=== PATIENT | male | born 1960 | race Caucasian/White ===

== ENCOUNTER 2020-02-20 00:11 | Observation (INO) | payer BC, OTHER ==
--- NOTE | 2020-02-20 00:16 | EDM.PDOC ---
ED HPI GENERAL MEDICAL PROBLEM - General Time Seen by Provider: 02/20/20 00:12 Source of Information: Reports: Patient, EMS, Family History Limitations: Reports: Altered Mental Status - History of Present Illness INITIAL COMMENTS - FREE TEXT/NARRATIVE: 59-year-old male who presents to the emergency department via ambulance from home after he could not be awakened by his was noted to be foaming at the mouth. Apparently, the patient had reported to his at 5 PM that he was tired and he went to bed at that time and at approximately 8 PM she went in to wake the patient up to give him his medication and she found him to be foaming at the mouth and was unresponsive and she could not get him to arouse with any stimuli and she called 911. According to her, he had really had no complaints prior to this. 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 He had no cough or nasal congestion. He has had no vomiting. He hasn't really been eating well today according her. The patient gives me some history but he tells me that he had recently been on a long trip and he had not slept for the past 48 hours. The does not corroborate that and reports that he has been sleeping normally except going to bed early tonight as far she knows. The patient denies any pain at present and would rate his pain as a 0/10. He is awake and able to converse but he goes to sleep easily. He does seem somewhat confused but is able to answer most of my questions appropriately but is not clear on some of his past history and recent events. Onset: Today (Found by at 8 PM to be unresponsive) Duration: Improving Location: Reports: Other (Not applicable) Quality: Reports: Other (Not applicable) Improves with: Reports: None Worsens with: Reports: None Context: Reports: Other (As above) Associated Symptoms: Reports: Confusion, Other (Low O2 saturations) Treatments INFORMATION TECHNOLOGY INTERN: Reports: Other (see below) (Nothing) - Related Data Allergies Allergy/AdvReac Type Severity Reaction Status Date / Time No Known Allergies Allergy Verified 02/20/20 00:27 Home Meds: Home Meds Apixaban [Eliquis] 5 mg PO BID 02/20/20 [History] Escitalopram [Lexapro] 20 mg PO BEDTIME 02/20/20 [History] Metoprolol Succinate [Toprol XL] 25 mg PO BID 02/20/20 [History] levETIRAcetam [Keppra] 1,000 mg PO BID 02/20/20 [History] Past Medical History Cardiovascular History: Reports: Afib (On Eliquis), Hypertension, Stents (Has a stent in his left lower leg), Other (See Below) (Peripheral vascular disease) Neurological History: Reports: Seizure (On Keppra) Psychiatric History: Reports: Anxiety, Depression Hematologic History: Reports: Anticoagulation Therapy (On Eliquis) - Past Surgical History Cardiovascular Surgical History: Reports: Vascular Surgery (Stent placed in left lower extremity secondary to arterial blockage.) Social & Family History - Tobacco Use Smoking Status *Q: Current Every Day Smoker - Alcohol Use Alcohol Use History: Yes Alcohol Use in Last Twelve Months: No Alcohol Use Comment: 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 - Living Situation & Occupation Living situation: Reports: Occupation: Employed (He works at the [employer].) ED ROS GENERAL - Review of Systems Review Of Systems: See Below (It should be noted that this is unreliable secondary to the patient's confusion and disorientation but represents what he told me and what his conveyed to me as well.) Constitutional: Reports: Fatigue HEENT: Reports: No Symptoms Respiratory: Reports: Other (Patient denies any symptoms but he has low O2 saturations and was reported by his to be "aspirating" tonight when she found him) Cardiovascular: Reports: No Symptoms Endocrine: Reports: No Symptoms GI/Abdominal: Reports: No Symptoms : Reports: No Symptoms Musculoskeletal: Reports: No Symptoms Skin: Reports: No Symptoms Neurological: Reports: Seizure (Possible seizure), Other (Confused/disoriented. Increased sleepiness and decreased alertness) Psychiatric: Reports: Confusion Hematologic/Lymphatic: Reports: Easy Bruising (On Eliquis) Immunologic: Reports: No Symptoms - Physical Exam Exam: See Below Exam Limited By: No Limitations General Appearance: WD/WN, Lethargic (Will arouse and speaks in full sentences.) , Moderate Distress Eye Exam: Bilateral Eye: EOMI, Normal Inspection, Other (Sclera are anicteric) Ears: Normal External Exam, Hearing Grossly Normal Nose: Normal Inspection, Normal Mucosa, No Blood Throat/Mouth: Normal Oropharynx, Normal Voice, No Airway Compromise. No: Evidence of Tongue Biting Head Exam: Atraumatic, Normocephalic Neck: Normal Inspection, Supple, Non-Tender, Full Range of Motion Respiratory/Chest: No Respiratory Distress, Lungs Clear, Normal Breath Sounds, No Accessory Muscle Use, Chest Non-Tender Cardiovascular: Normal Peripheral Pulses, No Gallop, No Murmur, Tachycardia, Irregularly Irregular GI/Abdominal: Normal Bowel Sounds, Soft, Non-Tender, No Mass Neuro Exam (Abbreviated): CN II-XII Intact, No Motor/Sensory Deficits, Inattentive, Disoriented (Slight), Slow to Respond, Other (Tends to fall asleep easily.) Back Exam: Normal Inspection, Full Range of Motion Extremities: Normal Inspection, Normal Range of Motion, Non-Tender, No Pedal Edema, Normal Capillary Refill Skin Exam: Warm, Dry, Intact, Normal Color, No Rash EKG INTERPRETATION EKG Date: 02/20/20 Time: 00:28 Rhythm: A-Fib Rate (Beats/Min): 103 Dexter: Normal P-Wave: Absent QRS: Normal ST-T: Normal QT: Normal Comparison: NA - No Prior EKG (But reports that he does have a history of atrial fibrillation.) EKG Interpretation Comments: Poor R-wave progression but no acute injury pattern. Course - Vital Signs Last Recorded V/S: Last Vital Signs Temp 36.4 C 02/20/20 00:11 Pulse 105 H 02/20/20 00:11 Resp 15 02/20/20 00:11 BP 148/96 H 02/20/20 00:11 Pulse Ox 90 L 02/20/20 00:11 - Orders/Labs/Meds Orders: Active Orders 24 hr Category Date Time Status Admission Status [Patient Status] [ADT] Routine ADT 02/20/20 02:57 Active Cardiac Monitoring [RC] .As Directed Care 02/20/20 02:57 Active EKG Documentation Completion [RC] ASDIRECTED Care 02/20/20 00:18 Active Chest 1V Frontal [CR] Stat Exams 02/20/20 00:17 Taken Head wo Cont [CT] Stat Exams 02/20/20 01:28 Taken DRUG SCREEN, URINE ALERE [URCHEM] Stat Lab 02/20/20 02:37 Ordered UA W/MICROSCOPIC [URIN] Stat Lab 02/20/20 02:38 Ordered Sodium Chloride 0.9% [Normal Saline] 1,000 ml Med 02/20/20 01:30 Active IV ASDIRECTED Sodium Chloride 0.9% [Saline Flush] Med 02/20/20 00:19 Active 10 ml FLUSH ASDIRECTED PRN Vancomycin 1.25 gm Med 02/20/20 02:14 Active Sodium Chloride 0.9% [Normal Saline] 250 ml IV ONETIME Peripheral IV Insertion Adult [OM.PC] Routine Oth 02/20/20 00:19 Ordered EKG 12 Lead [EK] Routine Ther 02/20/20 00:17 Ordered Medication Orders Sodium Chloride (Normal Saline) 1,000 mls @ 100 mls/hr IV ASDIRECTED FLO Last Admin: 02/20/20 02:20 Dose: 100 mls/hr Vancomycin HCl 1.25 gm/ Sodium (Chloride) 250 mls @ 167 mls/hr IV ONETIME ONE Stop: 02/20/20 03:43 Sodium Chloride (Saline Flush) 10 ml FLUSH ASDIRECTED PRN PRN Reason: Keep Vein Open Last Admin: 02/20/20 02:01 Dose: 10 ml Labs: Laboratory Tests 02/19/20 02/20/20 02/20/20 Range/Units 23:48 00:33 00:33 WBC 13.4 H (4.5-12.0) X10-3/uL RBC 5.35 (4.30-5.75) x10(6)uL Hgb 16.5 (13.5-17.8) g/dL Hct 49.2 (30.0-51.3) % MCV 91.9 (80-96) fL MCH 30.9 (27.7-33.6) pg MCHC 33.6 (32.2-35.4) g/dL RDW 13.6 (11.5-15.5) % Plt Count 224 (125-369) X10(3)uL MPV 9.6 (7.4-10.4) fL Neut % (Auto) 78.6 (46-82) % Lymph % (Auto) 12.9 L (13-37) % Carlisle % (Auto) 6.1 (4-12) % Eos % (Auto) 1 (1.0-5.0) % Baso % (Auto) 2 (0-2) % Neut # (Auto) 10.6 H (1.6-8.3) # Lymph # (Auto) 1.7 (0.6-5.0) # Carlisle # (Auto) 0.8 (0.0-1.3) # Eos # (Auto) 0.1 (0.0-0.8) # Baso # (Auto) 0.2 (0.0-0.2) # PT (9.0-11.1) sec INR (1.00-1.24) APTT (24.4-33.2) SECONDS POC VBG pH 7.45 H (7.31-7.41) POC VBG pCO2 34.4 L (41-51) mmHG POC VBG HCO3 23.7 (23-28) mmol/L POC VBG Total CO2 25 (24-29) mmol/L POC VBG Base Excess 0 (-2-3) mmol/L Sodium 142 (135-145) mmol/L Potassium 4.7 (3.5-5.3) mmol/L Chloride 103 (100-110) mmol/L Carbon Dioxide 28 (21-32) mmol/L BUN 11 (7-18) mg/dL Creatinine 1.1 (0.70-1.30) mg/dL Est Cr Clr Drug Dosing TNP Estimated GFR (MDRD) > 60 (>60) BUN/Creatinine Ratio 10.0 (9-20) Glucose 137 H (80-116) mg/dL Calcium 8.1 L (8.6-10.2) mg/dL Magnesium 1.8 (1.8-2.5) mg/dL Total Bilirubin 0.8 (0.1-1.3) mg/dL AST 23 (5-25) IU/L ALT 19 (12-36) U/L Alkaline Phosphatase 90 (56-112) IU/L Troponin I (4.0-60.3) pg/mL Total Protein 7.7 (6.0-8.0) g/dL Albumin 3.6 (3.2-4.6) g/dL Globulin 4.1 g/dL Albumin/Globulin Ratio 0.9 Salicylates (<2.8) mg/dL Acetaminophen (<2) ug/mL Ethyl Alcohol (<0.03) % 02/20/20 02/20/20 02/20/20 Range/Units 00:33 00:33 00:33 WBC (4.5-12.0) X10-3/uL RBC (4.30-5.75) x10(6)uL Hgb (13.5-17.8) g/dL Hct (30.0-51.3) % MCV (80-96) fL MCH (27.7-33.6) pg MCHC (32.2-35.4) g/dL RDW (11.5-15.5) % Plt Count (125-369) X10(3)uL MPV (7.4-10.4) fL Neut % (Auto) (46-82) % Lymph % (Auto) (13-37) % Carlisle % (Auto) (4-12) % Eos % (Auto) (1.0-5.0) % Baso % (Auto) (0-2) % Neut # (Auto) (1.6-8.3) # Lymph # (Auto) (0.6-5.0) # Carlisle # (Auto) (0.0-1.3) # Eos # (Auto) (0.0-0.8) # Baso # (Auto) (0.0-0.2) # PT 11.6 H (9.0-11.1) sec INR 1.08 (1.00-1.24) APTT 31.0 (24.4-33.2) SECONDS POC VBG pH (7.31-7.41) POC VBG pCO2 (41-51) mmHG POC VBG HCO3 (23-28) mmol/L POC VBG Total CO2 (24-29) mmol/L POC VBG Base Excess (-2-3) mmol/L Sodium (135-145) mmol/L Potassium (3.5-5.3) mmol/L Chloride (100-110) mmol/L Carbon Dioxide (21-32) mmol/L BUN (7-18) mg/dL Creatinine (0.70-1.30) mg/dL Est Cr Clr Drug Dosing Estimated GFR (MDRD) (>60) BUN/Creatinine Ratio (9-20) Glucose (80-116) mg/dL Calcium (8.6-10.2) mg/dL Magnesium (1.8-2.5) mg/dL Total Bilirubin (0.1-1.3) mg/dL AST (5-25) IU/L ALT (12-36) U/L Alkaline Phosphatase (56-112) IU/L Troponin I 10.5 (4.0-60.3) pg/mL Total Protein (6.0-8.0) g/dL Albumin (3.2-4.6) g/dL Globulin g/dL Albumin/Globulin Ratio Salicylates (<2.8) mg/dL Acetaminophen (<2) ug/mL Ethyl Alcohol (<0.03) % 02/20/20 02/20/20 Range/Units 00:33 00:33 WBC (4.5-12.0) X10-3/uL RBC (4.30-5.75) x10(6)uL Hgb (13.5-17.8) g/dL Hct (30.0-51.3) % MCV (80-96) fL MCH (27.7-33.6) pg MCHC (32.2-35.4) g/dL RDW (11.5-15.5) % Plt Count (125-369) X10(3)uL MPV (7.4-10.4) fL Neut % (Auto) (46-82) % Lymph % (Auto) (13-37) % Carlisle % (Auto) (4-12) % Eos % (Auto) (1.0-5.0) % Baso % (Auto) (0-2) % Neut # (Auto) (1.6-8.3) # Lymph # (Auto) (0.6-5.0) # Carlisle # (Auto) (0.0-1.3) # Eos # (Auto) (0.0-0.8) # Baso # (Auto) (0.0-0.2) # PT (9.0-11.1) sec INR (1.00-1.24) APTT (24.4-33.2) SECONDS POC VBG pH (7.31-7.41) POC VBG pCO2 (41-51) mmHG POC VBG HCO3 (23-28) mmol/L POC VBG Total CO2 (24-29) mmol/L POC VBG Base Excess (-2-3) mmol/L Sodium (135-145) mmol/L Potassium (3.5-5.3) mmol/L Chloride (100-110) mmol/L Carbon Dioxide (21-32) mmol/L BUN (7-18) mg/dL Creatinine (0.70-1.30) mg/dL Est Cr Clr Drug Dosing Estimated GFR (MDRD) (>60) BUN/Creatinine Ratio (9-20) Glucose (80-116) mg/dL Calcium (8.6-10.2) mg/dL Magnesium (1.8-2.5) mg/dL Total Bilirubin (0.1-1.3) mg/dL AST (5-25) IU/L ALT (12-36) U/L Alkaline Phosphatase (56-112) IU/L Troponin I (4.0-60.3) pg/mL Total Protein (6.0-8.0) g/dL Albumin (3.2-4.6) g/dL Globulin g/dL Albumin/Globulin Ratio Salicylates 6.0 (<2.8) mg/dL Acetaminophen < 2 L (<2) ug/mL Ethyl Alcohol < 0.03 (<0.03) % Meds: Medications Generic Name Dose Route Start Last Admin Trade Name Freq PRN Reason Stop Dose Admin Sodium Chloride 1,000 mls @ 100 mls/hr 02/20/20 01:30 02/20/20 02:20 Normal Saline IV 100 mls/hr ASDIRECTED FLO Administration Vancomycin HCl 1.25 gm/ Sodium 250 mls @ 167 mls/hr 02/20/20 02:14 Chloride IV 02/20/20 03:43 ONETIME ONE Sodium Chloride 10 ml 02/20/20 00:19 02/20/20 02:01 Saline Flush FLUSH 10 ml ASDIRECTED PRN Administration Keep Vein Open Discontinued Medications Generic Name Dose Route Start Last Admin Trade Name Freq PRN Reason Stop Dose Admin Levetiracetam 500 mg/ Sodium 105 mls @ 400 mls/hr 02/20/20 01:28 02/20/20 01: 45 Chloride IV 02/20/20 01:42 400 mls/hr ONETIME ONE Administration Sodium Chloride 500 mls @ 999 mls/hr 02/20/20 01:29 02/20/20 01:39 Normal Saline IV 02/20/20 01:59 999 mls/hr .BOLUS ONE Administration Piperacillin Sod/Tazobactam 50 mls @ 100 mls/hr 02/20/20 02:13 02/20/20 02:37 Sod 3.375 gm/ Sodium Chloride IV 02/20/20 02:42 100 mls/hr ONETIME ONE Administration - Radiology Interpretation Free Text/Narrative:: Portable chest x-ray shows haziness in both lower lung august. Concerning for possible aspiration pneumonitis. - Re-Assessments/Exams Free Text/Narrative Re-Assessment/Exam: 02/20/20 01:30: The patient's O2 saturations are 94% on 2 L now and they dropped into the upper 80s when he is off oxygen and still seemed to drop a little bit when he goes to sleep even on oxygen. Her main is quite somnolent but is able to be awakened and does converse in complete. His exam remains nonfocal. His chest x-ray is thought concerning for potential aspiration and his history supports this. His blood tests are all reassuringly normal except for an elevated white blood cell count. I am sending him for a CT of his head at this point and I will give him normal saline 500 mL as a bolus as well as well as Keppra 500 mg IV. 02/20/20 02:30: Patient remains somnolent but will awaken and is appropriate when awakened. He has remained neurologically stable with no focality to his exam. He has remained hypoxic and requiring oxygen and this does seem to worsen when he goes to sleep suggesting he has some sleep apnea he will need admission for continued close monitoring and for supplemental oxygen and for IV antibiotic therapy. I discussed this with the patient's and she is in agreement with this and would be in agreement with the patient being admitted here at this point. The patient will be treated with Zosyn and vancomycin IV. I am awaiting urine tox screen as well as alcohol level and acetaminophen and salicylate levels. The patient adamantly denied using any drugs or drinking alcohol and he denies any thoughts of self-harm and the corroborates this. According to her, he had a pretty normal day up until 5 PM when he went to bed and was feeling more tired than normal. In fact, she reports that he was eating and drinking normally earlier and he was conversing and in good spirits. I will place admission orders and Dr. Melinda deutsch patient at 7 AM on 02/20/2020. Departure - Departure Time of Disposition: 03:00 Disposition: Refer to Observation Condition: Fair (Stable) Clinical Impression: Seizure, Aspiration pneumonitis, Hypoxia Altered mental status Qualifiers: Altered mental status type: unspecified Qualified Code(s): R41.82 - Altered mental status, unspecified - Discharge Information Sepsis Event Note - Focused Exam Vital Signs: Vital Signs Temp Pulse Resp BP Pulse Ox 02/20/20 00:11 36.4 C 105 H 15 148/96 H 90 L Date Exam was Performed: 02/20/20 Time Exam was Performed: 03:13 - My Orders Last 24 Hours: My Active Orders 02/20/20 00:17 Chest 1V Frontal [CR] Stat EKG 12 Lead [EK] Routine 02/20/20 00:18 EKG Documentation Completion [RC] ASDIRECTED 02/20/20 00:19 Sodium Chloride 0.9% [Saline Flush] 10 ml FLUSH ASDIRECTED PRN Peripheral IV Insertion Adult [OM.PC] Routine 02/20/20 01:28 Head wo Cont [CT] Stat 02/20/20 01:30 Sodium Chloride 0.9% [Normal Saline] 1,000 ml IV ASDIRECTED 02/20/20 02:14 Vancomycin 1.25 gm Sodium Chloride 0.9% [Normal Saline] 250 ml IV ONETIME 02/20/20 02:37 DRUG SCREEN, URINE ALERE [URCHEM] Stat 02/20/20 02:38 UA W/MICROSCOPIC [URIN] Stat 02/20/20 02:57 Admission Status [Patient Status] [ADT] Routine Cardiac Monitoring [RC] .As Directed - Assessment/Plan Last 24 Hours: My Active Orders 02/20/20 00:17 Chest 1V Frontal [CR] Stat EKG 12 Lead [EK] Routine 02/20/20 00:18 EKG Documentation Completion [RC] ASDIRECTED 02/20/20 00:19 Sodium Chloride 0.9% [Saline Flush] 10 ml FLUSH ASDIRECTED PRN Peripheral IV Insertion Adult [OM.PC] Routine 02/20/20 01:28 Head wo Cont [CT] Stat 02/20/20 01:30 Sodium Chloride 0.9% [Normal Saline] 1,000 ml IV ASDIRECTED 02/20/20 02:14 Vancomycin 1.25 gm Sodium Chloride 0.9% [Normal Saline] 250 ml IV ONETIME 02/20/20 02:37 DRUG SCREEN, URINE ALERE [URCHEM] Stat 02/20/20 02:38 UA W/MICROSCOPIC [URIN] Stat 02/20/20 02:57 Admission Status [Patient Status] [ADT] Routine Cardiac Monitoring [RC] .As Directed
[2020-02-20] MEDS ORDERED: Sodium Chloride 0.9% 10 ML Syringe FLUSH PRN (00:19)
[2020-02-20] MEDS ORDERED: levETIRAcetam 500 MG in Sodium Chloride 0.9% 100 ML IV ONE (01:28)
[2020-02-20] MEDS ORDERED: Sodium Chloride 0.9% 500 ML IV ONE (01:29)
[2020-02-20] MEDS ORDERED: Piperacillin/Tazobactam 3.375 GM in Sodium Chloride 0.9% 50 ML IV ONE (02:13)
[2020-02-20] MEDS: Sodium Chloride 0.9% 1,000 ML IV SCH ×2 (02:20→08:52)
[2020-02-20 03:03] LABS: ACETAMINOPHEN < 2 ug/mL (<2)
--- NOTE | 2020-02-20 09:32 | PCM.HP.2 ---
H&P History of Present Illness - General Date of Service: 02/20/20 Admit Problem/Dx: Admission Diagnosis/Problem Admission Diagnosis/Problem Altered mental status Source of Information: Patient History Limitations: Reports: No Limitations - History of Present Illness Initial Comments - Free Text/Narative: Darrell is a 59-year-old male was brought in because of altered mental status. His reports that he complained that he was tired, and went to bed about 5 PM. At 8 PM she found him asleep and could not wake him up. Also he was acting confused of the left his vehicle running for 2 hours outside. She reports seeing foaming at the mouth, but no seizure was witnessed. Darrell states that he 's been tired recently sleeping 2-3 hours a night for the last week and also stressed about work. He has a history of paroxysmal atrial fibrillation on anticoagulation, hypertension, peripheral vascular disease and tobacco abuse. Is a previous alcoholic and quit more than 18 years ago. He denies any chest pain or shortness of breath fever chills. Overnight he was noted to be mostly sleepy and sometimes confused and disoriented. - Related Data Allergies/Adverse Reactions: Allergies Allergy/AdvReac Type Severity Reaction Status Date / Time No Known Allergies Allergy Verified 02/20/20 00:27 Home Medications: Home Meds Apixaban [Eliquis] 5 mg PO BID 02/20/20 [History] Escitalopram [Lexapro] 20 mg PO BEDTIME 02/20/20 [History] Metoprolol Succinate [Toprol XL] 25 mg PO BID 02/20/20 [History] levETIRAcetam [Keppra] 1,000 mg PO BID 02/20/20 [History] Past Medical History Cardiovascular History: Reports: Afib, Hypertension, Stents, Other (See Below) Neurological History: Reports: Seizure Psychiatric History: Reports: Anxiety, Depression Hematologic History: Reports: Anticoagulation Therapy - Past Surgical History Cardiovascular Surgical History: Reports: Vascular Surgery Social & Family History - Family History Family Medical History: Unobtainable - Tobacco Use Smoking Status *Q: Current Every Day Smoker Years of Tobacco use: 40 Packs/Tins Daily: 2 - Caffeine Use Caffeine Use: Reports: Coffee, Soda - Recreational Drug Use Recreational Drug Use: No - Living Situation & Occupation Living situation: Reports: Occupation: Employed (He works at the [employer].) H&P Review of Systems - Review of Systems: Review Of Systems: Comprehensive ROS is negative, except as noted in HPI. Exam - Exam Exam: See Below - Vital Signs Vital Signs: Last Vital Signs Temp 97.7 F 02/20/20 07:43 Pulse 88 02/20/20 07:43 Resp 16 02/20/20 07:43 BP 127/62 02/20/20 07:43 Pulse Ox 96 02/20/20 07:43 Weight: 105.035 kg - Exam Quality Assessment: Supplemental Oxygen General: Cooperative HEENT: PERRLA, Hearing Intact, Mucosa Moist & Jarrell, Nares Patent, Normal Nasal Septum, Posterior Pharynx Clear, Conjunctiva Clear, EOMI, EACs Clear, TMs Clear Neck: Supple, Trachea Midline, 2 Lungs: Clear to Auscultation, Normal Respiratory Effort Cardiovascular: Regular Rate, Regular Rhythm GI/Abdominal Exam: Normal Bowel Sounds, Soft, Non-Tender, No Organomegaly, No Distention, No Abnormal Bruit, No Mass, Pelvis Stable (Male) Exam: No Hernia, Normal Inspection, Normal Prostate, Circumcised Rectal (Males) Exam: Normal Exam, Normal Rectal Tone, Prostate Normal Back Exam: Normal Inspection, Full Range of Motion, NT Extremities: Normal Inspection, Normal Range of Motion, Non-Tender, No Pedal Edema, Normal Capillary Refill Skin: Warm, Dry, Intact Neurological: Cranial Nerves Intact, Reflexes Equal Bilateral Neuro Extensive - Mental Status: Disorientation to Time, Inattentive. No: Oriented x3 Neuro Extensive - Motor, Sensory, Reflexes: CN II-XII Intact, Normal Gait, Normal Reflexes Psychiatric: Alert - Patient Data Lab Results Last 24 hrs: Laboratory Results - last 24 hr 02/19/20 02/20/20 02/20/20 Range/Units 23:48 00:33 00:33 WBC 13.4 H (4.5-12.0) X10-3/uL RBC 5.35 (4.30-5.75) x10(6)uL Hgb 16.5 (13.5-17.8) g/dL Hct 49.2 (30.0-51.3) % MCV 91.9 (80-96) fL MCH 30.9 (27.7-33.6) pg MCHC 33.6 (32.2-35.4) g/dL RDW 13.6 (11.5-15.5) % Plt Count 224 (125-369) X10(3)uL MPV 9.6 (7.4-10.4) fL Neut % (Auto) 78.6 (46-82) % Lymph % (Auto) 12.9 L (13-37) % [place] % (Auto) 6.1 (4-12) % Eos % (Auto) 1 (1.0-5.0) % Baso % (Auto) 2 (0-2) % Neut # (Auto) 10.6 H (1.6-8.3) # Lymph # (Auto) 1.7 (0.6-5.0) # [place] # (Auto) 0.8 (0.0-1.3) # Eos # (Auto) 0.1 (0.0-0.8) # Baso # (Auto) 0.2 (0.0-0.2) # PT (9.0-11.1) sec INR (1.00-1.24) APTT (24.4-33.2) SECONDS POC VBG pH 7.45 H (7.31-7.41) POC VBG pCO2 34.4 L (41-51) mmHG POC VBG HCO3 23.7 (23-28) mmol/L POC VBG Total CO2 25 (24-29) mmol/L POC VBG Base Excess 0 (-2-3) mmol/L Sodium 142 (135-145) mmol/L Potassium 4.7 (3.5-5.3) mmol/L Chloride 103 (100-110) mmol/L Carbon Dioxide 28 (21-32) mmol/L BUN 11 (7-18) mg/dL Creatinine 1.1 (0.70-1.30) mg/dL Est Cr Clr Drug Dosing TNP Estimated GFR (MDRD) > 60 (>60) BUN/Creatinine Ratio 10.0 (9-20) Glucose 137 H (80-116) mg/dL Calcium 8.1 L (8.6-10.2) mg/dL Magnesium 1.8 (1.8-2.5) mg/dL Total Bilirubin 0.8 (0.1-1.3) mg/dL AST 23 (5-25) IU/L ALT 19 (12-36) U/L Alkaline Phosphatase 90 (56-112) IU/L Troponin I (4.0-60.3) pg/mL Total Protein 7.7 (6.0-8.0) g/dL Albumin 3.6 (3.2-4.6) g/dL Globulin 4.1 g/dL Albumin/Globulin Ratio 0.9 Salicylates (<2.8) mg/dL Urine Opiates Screen (NEGATIVE) Ur Oxycodone Screen (NEGATIVE) Ur Propoxyphene Screen (NEGATIVE) Acetaminophen (<2) ug/mL Ur Barbituates Screen (NEGATIVE) Ur Tricyclics Screen (NEGATIVE) Ur Phencyclidine Scrn (NEGATIVE) Ur Amphetamine Screen (NEGATIVE) Urine MDMA Screen (NEGATIVE) U Benzodiazepines Scrn (NEGATIVE) U Cocaine Metab Screen (NEGATIVE) U Marijuana (THC) Screen (NEGATIVE) Ethyl Alcohol (<0.03) % 02/20/20 02/20/20 02/20/20 Range/Units 00:33 00:33 00:33 WBC (4.5-12.0) X10-3/uL RBC (4.30-5.75) x10(6)uL Hgb (13.5-17.8) g/dL Hct (30.0-51.3) % MCV (80-96) fL MCH (27.7-33.6) pg MCHC (32.2-35.4) g/dL RDW (11.5-15.5) % Plt Count (125-369) X10(3)uL MPV (7.4-10.4) fL Neut % (Auto) (46-82) % Lymph % (Auto) (13-37) % [place] % (Auto) (4-12) % Eos % (Auto) (1.0-5.0) % Baso % (Auto) (0-2) % Neut # (Auto) (1.6-8.3) # Lymph # (Auto) (0.6-5.0) # [place] # (Auto) (0.0-1.3) # Eos # (Auto) (0.0-0.8) # Baso # (Auto) (0.0-0.2) # PT 11.6 H (9.0-11.1) sec INR 1.08 (1.00-1.24) APTT 31.0 (24.4-33.2) SECONDS POC VBG pH (7.31-7.41) POC VBG pCO2 (41-51) mmHG POC VBG HCO3 (23-28) mmol/L POC VBG Total CO2 (24-29) mmol/L POC VBG Base Excess (-2-3) mmol/L Sodium (135-145) mmol/L Potassium (3.5-5.3) mmol/L Chloride (100-110) mmol/L Carbon Dioxide (21-32) mmol/L BUN (7-18) mg/dL Creatinine (0.70-1.30) mg/dL Est Cr Clr Drug Dosing Estimated GFR (MDRD) (>60) BUN/Creatinine Ratio (9-20) Glucose (80-116) mg/dL Calcium (8.6-10.2) mg/dL Magnesium (1.8-2.5) mg/dL Total Bilirubin (0.1-1.3) mg/dL AST (5-25) IU/L ALT (12-36) U/L Alkaline Phosphatase (56-112) IU/L Troponin I 10.5 (4.0-60.3) pg/mL Total Protein (6.0-8.0) g/dL Albumin (3.2-4.6) g/dL Globulin g/dL Albumin/Globulin Ratio Salicylates (<2.8) mg/dL Urine Opiates Screen (NEGATIVE) Ur Oxycodone Screen (NEGATIVE) Ur Propoxyphene Screen (NEGATIVE) Acetaminophen (<2) ug/mL Ur Barbituates Screen (NEGATIVE) Ur Tricyclics Screen (NEGATIVE) Ur Phencyclidine Scrn (NEGATIVE) Ur Amphetamine Screen (NEGATIVE) Urine MDMA Screen (NEGATIVE) U Benzodiazepines Scrn (NEGATIVE) U Cocaine Metab Screen (NEGATIVE) U Marijuana (THC) Screen (NEGATIVE) Ethyl Alcohol (<0.03) % 02/20/20 02/20/20 02/20/20 Range/Units 00:33 00:33 08:55 WBC (4.5-12.0) X10-3/uL RBC (4.30-5.75) x10(6)uL Hgb (13.5-17.8) g/dL Hct (30.0-51.3) % MCV (80-96) fL MCH (27.7-33.6) pg MCHC (32.2-35.4) g/dL RDW (11.5-15.5) % Plt Count (125-369) X10(3)uL MPV (7.4-10.4) fL Neut % (Auto) (46-82) % Lymph % (Auto) (13-37) % [place] % (Auto) (4-12) % Eos % (Auto) (1.0-5.0) % Baso % (Auto) (0-2) % Neut # (Auto) (1.6-8.3) # Lymph # (Auto) (0.6-5.0) # [place] # (Auto) (0.0-1.3) # Eos # (Auto) (0.0-0.8) # Baso # (Auto) (0.0-0.2) # PT (9.0-11.1) sec INR (1.00-1.24) APTT (24.4-33.2) SECONDS POC VBG pH (7.31-7.41) POC VBG pCO2 (41-51) mmHG POC VBG HCO3 (23-28) mmol/L POC VBG Total CO2 (24-29) mmol/L POC VBG Base Excess (-2-3) mmol/L Sodium (135-145) mmol/L Potassium (3.5-5.3) mmol/L Chloride (100-110) mmol/L Carbon Dioxide (21-32) mmol/L BUN (7-18) mg/dL Creatinine (0.70-1.30) mg/dL Est Cr Clr Drug Dosing Estimated GFR (MDRD) (>60) BUN/Creatinine Ratio (9-20) Glucose (80-116) mg/dL Calcium (8.6-10.2) mg/dL Magnesium (1.8-2.5) mg/dL Total Bilirubin (0.1-1.3) mg/dL AST (5-25) IU/L ALT (12-36) U/L Alkaline Phosphatase (56-112) IU/L Troponin I (4.0-60.3) pg/mL Total Protein (6.0-8.0) g/dL Albumin (3.2-4.6) g/dL Globulin g/dL Albumin/Globulin Ratio Salicylates 6.0 (<2.8) mg/dL Urine Opiates Screen Negative (NEGATIVE) Ur Oxycodone Screen Negative (NEGATIVE) Ur Propoxyphene Screen Negative (NEGATIVE) Acetaminophen < 2 L (<2) ug/mL Ur Barbituates Screen Negative (NEGATIVE) Ur Tricyclics Screen Negative (NEGATIVE) Ur Phencyclidine Scrn Negative (NEGATIVE) Ur Amphetamine Screen Negative (NEGATIVE) Urine MDMA Screen Negative (NEGATIVE) U Benzodiazepines Scrn Negative (NEGATIVE) U Cocaine Metab Screen Negative (NEGATIVE) U Marijuana (THC) Screen Positive H (NEGATIVE) Ethyl Alcohol < 0.03 (<0.03) % Result Diagrams: 02/20/20 00:33 02/20/20 00:33 Sepsis Event Note - Evaluation Sepsis Screening Result: Severe Sepsis Risk - Focused Exam Vital Signs: Vital Signs Temp Temp Pulse Resp BP Pulse Ox 02/20/20 07:43 97.7 F 88 16 127/62 96 02/20/20 04:10 97.8 F 90 16 142/84 H 89 L 02/20/20 03:30 97.5 F 87 14 118/93 H 94 L 02/20/20 03:06 97.8 F 92 16 136/82 90 L 02/20/20 00:11 97.5 F 105 H 15 148/96 H 90 L Date Exam was Performed: 02/20/20 Time Exam was Performed: 09:27 - Problem List (1) Altered mental status SNOMED Code(s): 184001225 ICD Code: R41.82 - ALTERED MENTAL STATUS, UNSPECIFIED Status: Acute Current Visit: Yes Qualifiers: Altered mental status type: unspecified Qualified Code(s): R41.82 - Altered mental status, unspecified (2) H/O idiopathic seizure SNOMED Code(s): 626024747 ICD Code: Z87.898 - PERSONAL HISTORY OF OTHER SPECIFIED CONDITIONS Status: Acute Current Visit: Yes (3) JAXSON (obstructive sleep apnea) SNOMED Code(s): 40440830 ICD Code: G47.33 - OBSTRUCTIVE SLEEP APNEA (ADULT) (PEDIATRIC) Status: Acute Current Visit: Yes (4) PVD (peripheral vascular disease) SNOMED Code(s): 150579594 ICD Code: I73.9 - PERIPHERAL VASCULAR DISEASE, UNSPECIFIED Status: Acute Current Visit: Yes (5) Tobacco abuse SNOMED Code(s): 616911648 ICD Code: Z72.0 - TOBACCO USE Status: Acute Current Visit: Yes (6) HTN (hypertension) SNOMED Code(s): 73659790 ICD Code: I10 - ESSENTIAL (PRIMARY) HYPERTENSION Status: Acute Current Visit: Yes Qualifiers: Hypertension type: essential hypertension Qualified Code(s): I10 - Essential (primary) hypertension (7) Afib SNOMED Code(s): 77776428 ICD Code: I48.91 - UNSPECIFIED ATRIAL FIBRILLATION Status: Acute Current Visit: Yes Qualifiers: Atrial fibrillation type: paroxysmal Qualified Code(s): I48.0 - Paroxysmal atrial fibrillation (8) Long-term current use of anticonvulsant SNOMED Code(s): 38904426198875 ICD Code: Z79.899 - OTHER [facility] (CURRENT) DRUG THERAPY Status: Acute Current Visit: Yes (9) Anticoagulant long-term use SNOMED Code(s): 147876298 ICD Code: Z79.01 - [facility]PC (CURRENT) USE OF ANTICOAGULANTS Status: Acute Current Visit: Yes (10) Anxiety SNOMED Code(s): 92369218 ICD Code: F41.9 - ANXIETY DISORDER, UNSPECIFIED Status: Acute Current Visit: Yes Problem List Initiated/Reviewed/Updated: Yes Orders Last 24hrs: Active Orders 24 hr Category Date Time Status Admission Status [Patient Status] [ADT] Routine ADT 02/20/20 02:57 Active Cardiac Monitoring [RC] 08,16,00 Care 02/20/20 02:57 Active Intake and Output [RC] 06,14,22 Care 02/20/20 03:06 Active Oxygen Therapy [RC] PRN Care 02/20/20 03:06 Active Up With Assistance [RC] ASDIRECTED Care 02/20/20 03:06 Active VTE/DVT Education [RC] Per Unit Routine Care 02/20/20 03:06 Active Vital Signs [RC] 08,12,16,20,00,04 Care 02/20/20 03:06 Active Nothing per Oral Now Diet [DIET] Diet 02/20/20 Breakfast Active Regular Diet [DIET] Diet 02/20/20 Lunch Active Brain wo Cont [MR] Routine Exams 02/20/20 09:24 Ordered Chest 1V Frontal [CR] Stat Exams 02/20/20 00:17 Taken Head wo Cont [CT] Stat Exams 02/20/20 01:28 Taken BASIC METABOLIC PANEL,BMP [CHEM] AM Lab 02/21/20 05:11 Ordered CBC WITH AUTO DIFF [HEME] AM Lab 02/21/20 05:11 Ordered DRUG SCREEN, URINE ALERE [URCHEM] Stat Lab 02/20/20 09:24 Ordered LEVETIRACETAM (KEPPRA), S Stat Lab 02/20/20 09:24 Ordered TROPONIN I [CHEM] AM Lab 02/21/20 05:11 Ordered UA W/MICROSCOPIC [URIN] Stat Lab 02/20/20 08:55 Received Apixaban [Eliquis] Med 02/20/20 21:00 Ordered 5 mg PO BID Escitalopram [Lexapro] Med 02/20/20 21:00 Ordered 20 mg PO BEDTIME Metoprolol Succinate [Toprol XL] Med 02/20/20 21:00 Ordered 25 mg PO BID Sodium Chloride 0.9% [Saline Flush] Med 02/20/20 00:19 Active 10 ml FLUSH ASDIRECTED PRN levETIRAcetam [Keppra] Med 02/20/20 21:00 Ordered 1,000 mg PO BID Peripheral IV Insertion Adult [OM.PC] Routine Oth 02/20/20 00:19 Ordered Resuscitation Status Routine Resus Stat 02/20/20 03:06 Ordered EKG 12 Lead [EK] Routine Ther 02/20/20 00:17 Stop Req Medication Orders Apixaban (Eliquis) 5 mg PO BID FLO Escitalopram Oxalate (Lexapro) 20 mg PO BEDTIME FLO Metoprolol Succinate (Toprol Xl) 25 mg PO BID FLO Non-Formulary Medication (Levetiracetam [Keppra]) 1,000 mg PO BID FLO Sodium Chloride (Saline Flush) 10 ml FLUSH ASDIRECTED PRN PRN Reason: Keep Vein Open Last Admin: 02/20/20 02:01 Dose: 10 ml Assessment/Plan Comment:: CT of the head, initial EKG troponin and lab work were negative. His urine drug screen showed marijuana. This morning he still has some sleepiness and complains of feeling tired. I'll keep him on monitor, do a Keppra level and repeat labs. Also ordered for an MRI of the brain. The requested consideration transfer to [facility] but after discussion I felt at this time there' s no immediate indication for transfer
[2020-02-20] MEDS ORDERED: Nicotine 21 MG/24 Hr Patch TRDERM ONE (09:33)
[2020-02-20] MEDS ORDERED: Apixaban 5 MG Tab PO SCH (10:30)
[2020-02-20] MEDS ORDERED: levETIRAcetam 500 MG Tab PO SCH (10:45)
[2020-02-20] MEDS ORDERED: Metoprolol Succinate 25 MG Tab.ER PO SCH (10:45)
[2020-02-20] MEDS ORDERED: Escitalopram 20 MG Tab PO SCH (21:00)
--- NOTE | 2020-02-21 09:17 | DISCH ---
DISCHARGE DATE: 02/20/2020 REASON FOR ADMISSION: Altered mental status. TRANSFER DIAGNOSES: 1. Altered mental status. 2. History of seizures. 3. History of atrial fibrillation, paroxysmal. 4. Hypertension. 5. Tobacco abuse. BRIEF HISTORY AND HOSPITAL COURSE: A 59-year-old male was brought in because of alteration of mental status, tiredness, and a possible seizure. Laboratory work and CT of the head have been negative. The family has requested transfer to [place] for further workup, and I called and spoke to Dr. Rangel, who has accepted him at the [facility]. We will send him by ambulance, since he is unable to drive. I spent more than 35 minutes in the transfer of the patient. /[id number] GAMALIEL/ELVIS
--- NOTE | 2020-02-21 10:48 | CR ---
INDICATION: Altered mental status. Low oxygen saturations. CHEST ONE VIEW FRONTAL: An AP upright portable view of the chest 02/20/20 - no comparisons. The heart appears to be prominent, but not grossly enlarged. The aorta is somewhat tortuous. Overlying EKG leads are noted, overlying snap noted. A definite active infiltrate or effusion was not identified. Evidence of exogenous obesity is suggested. IMPRESSION: No definite acute process - suggest full inspiration PA and lateral views of the chest when clinically able for further evaluation. MTDD
== END 2020-02-20 13:45 ==
LOC: FB.ED 00:11 → FB.MS 03:02
PROVIDERS: ADMIT Emergency Medicine; ATTEND Family Medicine
DX: R41.82 Altered mental status, unspecified (principal); R09.02 Hypoxemia; I10 Essential (primary) hypertension; I48.0 Paroxysmal atrial fibrillation; F41.9 Anxiety disorder, unspecified; I73.9 Peripheral vascular disease, unspecified; F32.9 Major depressive disorder, single episode, unspecified; F17.210 Nicotine dependence, cigarettes, uncomplicated; G47.33 Obstructive sleep apnea (adult) (pediatric); Z79.899 Other long term (current) drug therapy; Z87.898 Personal history of other specified conditions; Z79.01 Long term (current) use of anticoagulants
CPT/HCPCS: 36415; 70450; 71045; 80053; 80305-QW; 80307; 81001; 82803; 83735; 84484; 85025; 85610; 85730; 93005; 93010; 96361; 96365; 96367; 96375; 99284; 99285-25; A9270-GY; G0378; J1953; J2543; J3370; J7030; J7040; J7050

== ENCOUNTER 2021-12-03 16:30 | Emergency (ER) | payer MEDICAID ==
[2021-12-03] MEDS ORDERED: Iopamidol 755 Mg/ML 100 ML Bottle IV ONE (18:18)
[2021-12-03] MEDS ORDERED: Ketorolac 30 MG/ML SDV IM ONE (18:52)
== END 2021-12-03 19:25 | disposition home or self-care (01) ==
LOC: FB.ED 16:30
DX: F17.200 Nicotine dependence, unspecified, uncomplicated (principal); R53.1 Weakness; I48.91 Unspecified atrial fibrillation; E78.00 Pure hypercholesterolemia, unspecified; I10 Essential (primary) hypertension; J44.9 Chronic obstructive pulmonary disease, unspecified; Z95.5 Presence of coronary angioplasty implant and graft; Z79.01 Long term (current) use of anticoagulants; Z79.899 Other long term (current) drug therapy
CPT/HCPCS: 36415; 70450; 80048; 80175; 80177; 80307; 85027; 96372; 99285-25; J1885

== ENCOUNTER 2021-12-12 11:52 | Emergency (ER) | payer MEDICAID ==
[2021-12-12] MEDS ORDERED: Sodium Chloride 0.9% 10 ML Syringe FLUSH PRN (12:22)
[2021-12-12] MEDS ORDERED: Labetalol 20 MG/4 ML Syringe IVPUSH STA ×2 (12:24→13:41)
[2021-12-12] MEDS ORDERED: amLODIPine 10 MG Tab PO STA (13:41)
== END 2021-12-12 14:40 | disposition home or self-care (01) ==
LOC: FB.ED 11:52 → SUPCPDRO 11:52 → FB.ED 14:40
DX: I16.9 Hypertensive crisis, unspecified (principal); I48.91 Unspecified atrial fibrillation; E78.00 Pure hypercholesterolemia, unspecified; I10 Essential (primary) hypertension; J44.9 Chronic obstructive pulmonary disease, unspecified; Z72.0 Tobacco use; Z79.01 Long term (current) use of anticoagulants; Z79.899 Other long term (current) drug therapy
CPT/HCPCS: 36415; 70450; 80053; 84484; 85025; 93005; 96374; 96376; 99285; A9270; J3490; 93010

== ENCOUNTER 2021-12-17 09:55 | Emergency (ER) | payer MEDICAID ==
[2021-12-17] MEDS: Meclizine 25 MG Tab PO ONE (10:40)
== END 2021-12-17 11:38 | disposition home or self-care (01) ==
LOC: FB.ED 09:55
DX: R42 Dizziness and giddiness (principal); R11.2 Nausea with vomiting, unspecified; J44.9 Chronic obstructive pulmonary disease, unspecified; I48.91 Unspecified atrial fibrillation; I10 Essential (primary) hypertension; Z95.5 Presence of coronary angioplasty implant and graft; Z79.01 Long term (current) use of anticoagulants; Z79.899 Other long term (current) drug therapy
CPT/HCPCS: 36415; 80048; 84484; 85027; 99283; A9270-GY

== ENCOUNTER 2021-12-31 06:03 | Day surgery (SDC) | payer MEDICAID ==
[2021-12-31] MEDS ORDERED: Propofol 200 MG/20 ML SDV IV ONE (06:04)
[2021-12-31] MEDS ORDERED: Lidocaine 2% 100 MG/5 ML Syringe IVPUSH ONE (06:04)
[2021-12-31] MEDS ORDERED: Glycopyrrolate 0.2 MG/ML 5 ML MDV IV ONE (06:04)
[2021-12-31] MEDS ORDERED: Lactated Ringers 1,000 ML IV SCH (06:45)
[2021-12-31] MEDS ORDERED: Sodium Chloride 0.9% 10 ML Syringe FLUSH PRN (06:45)
== END 2021-12-31 11:15 | disposition home or self-care (01) ==
LOC: FB.SDS 06:03
PROVIDERS: ATTEND Surgery
DX: K63.5 Polyp of colon (principal); K57.30 Diverticulosis of large intestine without perforation or abscess without bleeding; I48.91 Unspecified atrial fibrillation; E78.00 Pure hypercholesterolemia, unspecified; I10 Essential (primary) hypertension; J44.9 Chronic obstructive pulmonary disease, unspecified; G62.9 Polyneuropathy, unspecified; F17.210 Nicotine dependence, cigarettes, uncomplicated; Z79.899 Other long term (current) drug therapy; Z98.890 Other specified postprocedural states
CPT/HCPCS: 00811; 45385; 88305; J2704; J3490; J7120

== ENCOUNTER 2022-06-25 18:14 | Emergency (ER) | payer MEDICAID ==
[2022-06-25 18:57] LABS: ESTIMATED GFR 68 mL/min (>60)
[2022-06-25] MEDS ORDERED: Sodium Chloride 0.9% 10 ML Syringe FLUSH PRN (19:20)
[2022-06-25] MEDS: VANCOmycin 1.5 GM/300 ML 1.5 GM in Premix Bag 1 BAG IV ONE (19:42)
[2022-06-25] MEDS: cefTRIAXone 1 GM Vial IVPUSH ONE (19:42)
== END 2022-06-25 21:30 | disposition home or self-care (01) ==
LOC: FB.ED 18:14
DX: L03.113 Cellulitis of right upper limb (principal); R79.82 Elevated C-reactive protein (CRP); I48.91 Unspecified atrial fibrillation; E78.00 Pure hypercholesterolemia, unspecified; I10 Essential (primary) hypertension; J44.9 Chronic obstructive pulmonary disease, unspecified; Z79.899 Other long term (current) drug therapy
CPT/HCPCS: 36415; 80053; 83605; 85025; 86140; 87040; 96365; 96375; 99283; J0696; J3370

== ENCOUNTER 2022-06-28 15:18 | Emergency (ER) | payer MEDICAID ==
[2022-06-28] MEDS ORDERED: Acetaminophen/HYDROcodone 325-5 MG Tab PO STA (16:05)
[2022-06-28 16:28] LABS: ESTIMATED GFR 68 mL/min (>60)
== END 2022-06-28 17:50 | disposition home or self-care (01) ==
LOC: FB.ED 15:18
DX: R10.31 Right lower quadrant pain (principal); R10.32 Left lower quadrant pain; I11.0 Hypertensive heart disease with heart failure; I50.9 Heart failure, unspecified; J44.9 Chronic obstructive pulmonary disease, unspecified; R91.1 Solitary pulmonary nodule; Z88.6 Allergy status to analgesic agent; Z88.5 Allergy status to narcotic agent; Z88.8 Allergy status to other drugs, medicaments and biological substances; Z79.01 Long term (current) use of anticoagulants; Z79.899 Other long term (current) drug therapy; Z86.16 Personal history of COVID-19
CPT/HCPCS: 36415; 74176; 80048; 85025; 93005; 99284; A9270

== ENCOUNTER 2022-12-01 12:48 | Emergency (ER) | payer MEDICAID | END 2022-12-01 14:15 | disposition home or self-care (01) | LOC: FB.ED 12:48 | DX: S92.414A Nondisplaced fracture of proximal phalanx of right great toe, initial encounter for closed fracture (principal); I11.0 Hypertensive heart disease with heart failure; I50.9 Heart failure, unspecified; I48.91 Unspecified atrial fibrillation; E78.00 Pure hypercholesterolemia, unspecified; F41.9 Anxiety disorder, unspecified; F32.A Depression, unspecified; Z88.6 Allergy status to analgesic agent; Z88.8 Allergy status to other drugs, medicaments and biological substances; Z79.899 Other long term (current) drug therapy; W19.XXXA Unspecified fall, initial encounter | CPT/HCPCS: 73630-RT; 99282; 99283 ==